=== PATIENT | male | born 1980 | race Caucasian/White ===

== ENCOUNTER 2017-04-20 10:54 | Emergency (ER) | payer OTHER ==
[~2017-04-20] VITALS: Ht 180.3 cm; Wt 154.4 kg
[2017-04-20 11:23] VITALS: BP 141/96
== END 2017-04-20 13:09 | disposition home or self-care (01) ==
LOC: ED 10:54
DX: S52.124A Nondisplaced fracture of head of right radius, initial encounter for closed fracture (principal); R07.89 Other chest pain; V09.9XXA Pedestrian injured in unspecified transport accident, initial encounter; Y93.89 Activity, other specified; Y92.89 Other specified places as the place of occurrence of the external cause; Y99.8 Other external cause status
CPT/HCPCS: J1885